=== PATIENT | male | born 1950 | race Caucasian/White ===

== ENCOUNTER 2024-10-04 08:30 | Inpatient (IN) | payer MEDICARE ==
[~2024-10-04] VITALS: Ht 167.6 cm; Wt 78.0 kg
[~2024-10-04 08:30] MED LIST: LISI10TA22 PO; MELO15TA28 PO; METF-877 PO; MULTTAB61 PO; SIMV40TA20 PO; TRAM50TA2 PO; VICT18IN SC; VITA100093 PO; VITA500C24 PO
[2024-10-04] MEDS: NS (Normal Saline) 0.9% 1,000 ML IV SCH ×2 (12:35→17:55)
[2024-10-04] MEDS ORDERED: ONDANSETRON 4MG 2ML VIAL IV PRN (13:10)
[2024-10-04] MEDS ORDERED: GLUCOSE 4 GM CHEW PO PRN (13:10)
[2024-10-04] MEDS ORDERED: ACETAMINOPHEN 325 MG TAB PO PRN (13:10)
[2024-10-04] MEDS ORDERED: DEXTROSE 50% 50ML SYRINGE IV PRN (13:10)
[2024-10-04] MEDS ORDERED: GLUCAGON INJ 1MG VIAL SC PRN (13:10)
[2024-10-04] MEDS ORDERED: PERCOCET 5MG/325MG TAB PO PRN ×2 (13:10)
[2024-10-04] MEDS: ceFAZolin SOD 2 GM in IV 1 EA IV ONE (13:22)
[2024-10-04] MEDS: HEPARIN SOD (PORCINE) 5000UNITS/ML 1ML VIAL/SYRINGE As Ordered ONE (13:26)
[2024-10-04] MEDS ORDERED: ELIQ5TAB PO (13:32)
[2024-10-04] MEDS ORDERED: PANT40TA29 PO (13:32)
[2024-10-04] MEDS ORDERED: LISI20TA33 PO (13:32)
[2024-10-04] MEDS ORDERED: VITA500065 PO (13:32)
[2024-10-04] MEDS ORDERED: JARD1TAB PO (13:32)
[2024-10-04] MEDS ORDERED: VITA30004 PO (13:32)
[2024-10-04] MEDS ORDERED: METO1TAB32 PO (13:32)
[2024-10-04] MEDS ORDERED: HOME MED LIST COMPLETE! XX SCH (13:35)
[2024-10-04] MEDS ORDERED: fentaNYL 250 MCG/5 ML INJECTION As Ordered ONE (13:37)
[2024-10-04] MEDS ORDERED: LIDOCAINE 2% 100MG/5ML SDV (FOR ANES.) As Ordered ONE (13:37)
[2024-10-04] MEDS ORDERED: MIDAZOLAM INJ 2MG/2ML VIAL As Ordered ONE (13:38)
[2024-10-04] MEDS ORDERED: propofoL 200 MG/20 ML VIAL As Ordered ONE (13:38)
[2024-10-04] MEDS ORDERED: ROCURONIUM BROMIDE 50MG/5ML VIAL As Ordered ONE (13:38)
[2024-10-04] MEDS ORDERED: ONDANSETRON 4MG 2ML VIAL As Ordered ONE (13:38)
[2024-10-04] MEDS ORDERED: ACETAMINOPHEN 1000MG/100ML IV BAG As Ordered ONE (13:39)
[2024-10-04] MEDS ORDERED: GLYCOPYRROLATE INJ 0.2 MG/ML 2 ML VIAL As Ordered ONE (13:53)
[2024-10-04] MEDS: LIDOCAINE 1% MDV 20ML VIAL As Ordered ONE (17:31)
[2024-10-04] MEDS ORDERED: fentaNYL 100 MCG/2 ML INJECTION IV PRN (17:55)
[2024-10-04] MEDS ORDERED: oxyCODONE 5MG TAB PO PRN (17:55)
[2024-10-04] MEDS ORDERED: HYDROMORPHONE HCL 0.5 MG/ 0.5 ML SYRINGE IV PRN (17:55)
[2024-10-04] MEDS: ONDANSETRON 4MG 2ML VIAL IV PRN (18:17)
[2024-10-04 18:35] VITALS: BP 131/75; TEMP 97.8; O2SAT 97
[2024-10-04] MEDS ORDERED: oxyBUTYnin 5 MG TAB PO PRN (18:35)
[2024-10-04] MEDS: NS (Normal Saline) 0.9% 500 ML IV SCH (18:42)
[2024-10-04] MEDS: INSULIN LISPRO (NovoLOG) PER UNIT SC SCH ×2 (18:43→20:52)
[2024-10-04 19:00] VITALS: BP 131/75; TEMP 97; O2SAT 95
[2024-10-04 19:05] LABS: HEMATOCRIT 41.6 % (42.0-52.0); MEAN CORPUSCULAR HEMOGLOBIN 32.9 pg (27.0-33.0); MEAN CORPUSCULAR HGB CONC 33.7 g/dl (32.0-36.5); MEAN CORPUSCULAR VOLUME 97.9 fl (80.0-96.0); PLATELET COUNT, AUTOMATED 249 10^3/uL (150-450); RED BLOOD COUNT 4.25 10^6/uL (4.30-6.10); WHITE BLOOD COUNT 9.1 10^3/uL (4.0-10.0)
[2024-10-04 19:24] LABS: BLOOD UREA NITROGEN 17 MG/DL (9-23); CALCIUM LEVEL 9.1 MG/DL (8.3-10.6); CARBON DIOXIDE LEVEL 23 MMOL/L (20-31); CHLORIDE LEVEL 101 MMOL/L (98-107); CREATININE FOR GFR 0.97 MG/DL (0.70-1.30); GLOMERULAR FILTRATION RATE > 60.0 (>42); GLUCOSE, FASTING 155 MG/DL (74-106); POTASSIUM SERUM 5.1 MMOL/L (3.5-5.1); SODIUM LEVEL 139 MMOL/L (136-145)
[2024-10-04] MEDS: ceFAZolin SOD 1 GM in DEXTROSE 5% (D5W) ADV/MINI-BAG 50 ML IV SCH (20:05)
[2024-10-04 20:09] VITALS: BP 132/81; TEMP 97; O2SAT 96
[2024-10-04] MEDS: DOCUSATE SODIUM 100MG CAPSULE PO SCH (20:53)
[2024-10-04 20:57] VITALS: BP 131/80; TEMP 97.2; O2SAT 95
[2024-10-04] MEDS: HEPARIN SOD (PORCINE) 5000UNITS/ML 1ML VIAL/SYRINGE SC SCH (22:04)
[2024-10-04 22:05] VITALS: BP 129/79; TEMP 97; O2SAT 98
[2024-10-04 23:00] VITALS: BP 127/72; TEMP 98.1; O2SAT 97
[2024-10-05 00:13] VITALS: BP 123/73; TEMP 97.5; O2SAT 96
[2024-10-05 04:01] VITALS: BP 129/74; TEMP 97.5; O2SAT 96
[2024-10-05 06:06] LABS: HEMATOCRIT 38.4 % (42.0-52.0); HEMOGLOBIN 12.8 g/dl (13.5-17.5); MEAN CORPUSCULAR HEMOGLOBIN 32.2 pg (27.0-33.0); MEAN CORPUSCULAR HGB CONC 33.3 g/dl (32.0-36.5); MEAN CORPUSCULAR VOLUME 96.5 fl (80.0-96.0); PLATELET COUNT, AUTOMATED 260 10^3/uL (150-450); RED BLOOD COUNT 3.98 10^6/uL (4.30-6.10); WHITE BLOOD COUNT 10.2 10^3/uL (4.0-10.0)
[2024-10-05 06:21] LABS: BLOOD UREA NITROGEN 15 MG/DL (9-23); CARBON DIOXIDE LEVEL 28 MMOL/L (20-31); CHLORIDE LEVEL 107 MMOL/L (98-107); CREATININE FOR GFR 0.98 MG/DL (0.70-1.30); GLOMERULAR FILTRATION RATE > 60.0 (>42); GLUCOSE, FASTING 143 MG/DL (74-106); POTASSIUM SERUM 4.4 MMOL/L (3.5-5.1); SODIUM LEVEL 139 MMOL/L (136-145)
[2024-10-05 08:00] VITALS: BP 134/79; TEMP 97.3; O2SAT 95
[2024-10-05] MEDS: SIMVASTATIN 40 MG TAB PO SCH (08:08)
[2024-10-05] MEDS ORDERED: COLA100C5 PO (10:16)
[2024-10-05] MEDS ORDERED: PERCOCET PO (10:16)
[2024-10-05] MEDS ORDERED: BACT800T5 PO (10:16)
[2024-10-05 10:37] VITALS: BP 129/79
[2024-10-05] MEDS: METOPROLOL SUCC *XL* 25MG TAB (TopROL *XL*) PO SCH (10:37)
== END 2024-10-05 12:32 | disposition home or self-care (01) | DRG 708 ==
LOC: M OR 11:52 → M MSPAV 18:30
PROVIDERS: ADMIT Urology; ATTEND Urology
PROC: 07BC4ZZ Excision of Pelvis Lymphatic, Percutaneous Endoscopic Approach (ICD-10-PCS; 2024-10-04)
PROC: 8E0W4CZ Robotic Assisted Procedure of Trunk Region, Percutaneous Endoscopic Approach (ICD-10-PCS; 2024-10-04)
PROC: 0VT04ZZ Resection of Prostate, Percutaneous Endoscopic Approach (ICD-10-PCS; principal; 2024-10-04 13:40)
DX: C61 Malignant neoplasm of prostate (principal); E11.9 Type 2 diabetes mellitus without complications; Z96.653 Presence of artificial knee joint, bilateral